=== PATIENT | female | born 1980 | race Caucasian/White ===

== ENCOUNTER 2018-03-04 14:31 | Emergency (ER) | payer BC, OTHER ==
[2018-03-04 14:37] VITALS: PULSE 118; RESP 20; TEMP 101.2; O2SAT 98
[2018-03-04 14:42] VITALS: BP 146/83
--- NOTE | 2018-03-04 15:27 | C.PDOC ---
History Of Present Illness CC "body aches, fevers, chills" HPI: Patient states she has symptoms of dry cough, sore throat, watery eyes, fevers, chills, diffuse body aches, dizziness described as lightheadedness that worsened 2 days ago. She denies abdominal pain, but states she vomited twice yesterday. She denies sick contacts, denies receiving flu shot. She states she took Dayquil early this morning at 7am, which did not help. PMH: none PSH: none Home meds: Dayquil Allergies: NKDA Social : denies smoking. Chief Complaint (Nursing): Flu-like Symptoms Past Medical History Vital Signs: Last Vital Signs Temp 101.2 F H 03/04/18 14:35 Pulse 118 H 03/04/18 14:35 Resp 20 03/04/18 14:35 BP 146/83 03/04/18 14:35 Pulse Ox 98 03/04/18 14:35 - Medical History PMH: No Chronic Diseases Family History: States: Unknown Family Hx - Social History Hx Alcohol Use: No Hx Substance Use: No - Immunization History Hx Tetanus Toxoid Vaccination: No Hx Influenza Vaccination: No Hx Pneumococcal Vaccination: No Review Of Systems Constitutional: Positive for: Fever, Chills ENT: Negative for: Ear Pain, Ear Discharge Cardiovascular: Negative for: Chest Pain, Palpitations Respiratory: Positive for: Cough Gastrointestinal: Positive for: Vomiting. Negative for: Nausea, Abdominal Pain Genitourinary: Negative for: Dysuria Neurological: Negative for: Weakness, Numbness, Confusion, Seizures Psych: Negative for: Anxiety, Depression Physical Exam - Physical Exam Appears: Other (Patient appears tired, watery eyes, coughing. ) Skin: Other (Patient feels warm to touch. ) Head: Atraumatic, Normacephalic Eye(s): bilateral: PERRL, EOMI Ear(s): Bilateral: Normal Nose: Normal Oral Mucosa: Moist Neck: Normal Chest: Symmetrical Cardiovascular: Rhythm Regular, No Friction Rub, No Murmur, No JVD Respiratory: Normal Breath Sounds, No Accessory Muscle Use, No Rales, No Rhonchi, No Stridor, No Wheezing, No Plerual Rub Gastrointestinal/Abdominal: Bowel Sounds, Soft, No Tenderness Back: Normal Inspection, No CVA Tenderness Extremity: No Tenderness, No Pedal Edema, No Calf Tenderness Neurological/Psych: Oriented x3, Normal Speech ED Course And Treatment O2 Sat by Pulse Oximetry: 98 Medical Decision Making Medical Decision Making: Tamiflu 75mg PO once given. Disposition - Disposition Disposition: HOME/ ROUTINE Disposition Time: 15:36 Condition: STABLE Prescriptions: Oseltamivir Cap [Tamiflu Cap] 75 mg PO BID #9 capsule Instructions: Flu, Adult (DC), Viral Upper Respiratory Infection, Adult (DC) Forms: [employer] [facility] ([place]) - Clinical Impression Clinical Impression: Influenza-like illness, Upper respiratory infection
== END 2018-03-04 15:53 | disposition home or self-care (01) ==
LOC: C.ER 14:31
DX: J11.1 Influenza due to unidentified influenza virus with other respiratory manifestations (principal)